=== PATIENT | male | born 1955 | race African-American/Black ===

== ENCOUNTER → 2020-10-16 | Outpatient (CLI) | payer OTHER, BC ==
[~2020-10-16] MED LIST: AZOR 10-40 MG1 EACH PO; NAPROSYN500 MG PO; ZOCOR 20 MG TAB20 M1 PO
== END ==
LOC: SJCVCIMAG 07:53
PROVIDERS: ATTEND Podiatrist Foot & Ankle Surgery
DX: I73.9 Peripheral vascular disease, unspecified (principal); M79.604 Pain in right leg; M79.605 Pain in left leg